=== PATIENT | male | born 1965 ===

== ENCOUNTER 2020-09-13 07:14 | Outpatient (CLI) | payer OTHER | END 2020-09-13 07:16 | disposition home or self-care (01) | LOC: NUCLEAR 07:14 | PROVIDERS: ATTEND Internal Medicine | DX: M16.0 Bilateral primary osteoarthritis of hip (principal); M17.0 Bilateral primary osteoarthritis of knee; M18.0 Bilateral primary osteoarthritis of first carpometacarpal joints; M19.09 Primary osteoarthritis, other specified site | CPT/HCPCS: 78306; A9503 ==

== ENCOUNTER 2021-01-25 07:13 | Outpatient (CLI) | payer OTHER | END 2021-01-25 07:15 | disposition home or self-care (01) | LOC: NUCLEAR 07:13 | PROVIDERS: ATTEND Internal Medicine | DX: I20.9 Angina pectoris, unspecified (principal); I10 Essential (primary) hypertension | CPT/HCPCS: 78452; 93017; A9500 ==